=== PATIENT | female | born 1990 | race Caucasian/White ===

== ENCOUNTER 2016-10-22 20:06 | Emergency (ER) | payer BC ==
[2016-10-22 20:10] VITALS: BP 114/80
--- NOTE | 2016-10-22 21:32 | UC ---
Cardiac HPI - HPI Summary HPI Summary: The patient comes in today for: 1. Chest pain: Onset: 3 weeks--not going away before, but it is not going away now. Palliative/provocative: Nothing particularly makes it persistently better or worse. Walking does not make it worse. Quality: Pressure--"Lots and lots of pressure, like someone is pressing on my chest." Region: Left chest. Severity: 6/10 Time: Constant. Associated symptoms: Dyspnea: Present. Hemoptysls: None. Injury: None. Blood clotting problems/DVT: None Blood clotting problems in the family: None. Cocaine: None. Heart disease: None. Travel: None. * - History of Current Complaint Chief Complaint: UCRespiratory Stated Complaint: CHEST DISCOMFORT,SOB Time Seen by Provider: 10/22/16 20:12 Hx Obtained From: Patient - Allergy/Home Medications Allergies/Adverse Reactions: Allergies Allergy/AdvReac Type Severity Reaction Status Date / Time Cefaclor Allergy Severe Rash Verified 10/22/16 20:10 Cefprozil [From Cefzil] Allergy Severe Rash Verified 10/22/16 20:10 Sulfa Drugs Allergy Severe Rash Verified 10/22/16 20:10 Penicillins Allergy Unknown Rash Verified 10/22/16 20:10 Amoxicillin Allergy Rash Verified 10/22/16 20:10 Home Medications: Home Medications Eye Drop ? Name 10/22/16 [History] PMH/Surg Hx/FS Hx/Imm Hx Previously Healthy: No - Allergies/eye drops. Endocrine History Of: Denies: Diabetes, Thyroid Disease, Hyperthyroidism, Hypothyroidism, Dyslipidemia Cardiovascular History Of: Denies: Cardiac Disorders, Hypertension, Pacemaker/ICD, Myocardial Infarction , Congestive Heart Failure, Atrial Fibrillation, Deep Vein Thrombosis, Bleeding Disorders Respiratory History Of: Denies: COPD, Asthma, Bronchitis, Pneumonia, Pulmonary Embolism GI/ History Of: Denies: Gastroesophageal Reflux, Ulcer, Gastrointestinal Bleed, Gall Bladder Disease, Kidney Stones, Diverticulitis, Renal Disease, Urosepsis Neurological History Of: Denies: TIA, CVA, Dementia, Seizures, Migraine Psychological History Of: Denies: Anxiety, Depression, Bipolar Disorder, Schizophrenia, Post Traumatic Stress Disorder Cancer History Of: Denies: Lung Cancer, Colorectal Cancer, Breast Cancer, Prostate Cancer, Cervical Cancer Other History Of: Negative For: HIV, Hepatitis B, Hepatitis C, Anticoagulant Therapy - Surgical History Surgical History: Yes Surgery Procedure, Year, and Place: D&C, EAR TUBES - Family History Known Family History: Positive: Cardiac Disease Negative: Hypertension - Social History Occupation: Employed Full-time Alcohol Use: Rare Substance Use Type: Marijuana Smoking Status (MU): Never Smoked Tobacco - Immunization History Most Recent Influenza Vaccination: 05/14/15 Most Recent Tetanus Shot: 07/02/15 Most Recent Pneumonia Vaccination: never Review of Systems Constitutional: Negative Skin: Rash - Metal allergy on the left wrist. Eyes: Negative ENT: Negative Respiratory: Negative Cardiovascular: Negative Gastrointestinal: Negative Genitourinary: Negative All Other Systems Reviewed And Are Negative: Yes Physical Exam Triage Information Reviewed: Yes Appearance: Well-Appearing, No Pain Distress, Well-Nourished Vital Signs: Initial Vital Signs Temp 98.7 F 10/22/16 20:07 Pulse 82 10/22/16 20:07 Resp 12 10/22/16 20:07 BP 114/80 10/22/16 20:07 Pulse Ox 98 10/22/16 20:07 Vital Signs Reviewed: Yes Eyes: Positive: Conjunctiva Clear. Negative: Discharge ENT: Positive: Hearing grossly normal. Negative: Pharyngeal erythema, Nasal congestion, TM bulging, TM dull, TM red, Tonsillar swelling, Tonsillar exudate Dental: Negative: Gross Decay/Caries @, Dental Fracture @ Neck: Positive: Supple, Nontender, No Lymphadenopathy. Negative: Nuchal Rigidity Respiratory: Positive: Chest non-tender, Lungs clear, No respiratory distress Cardiovascular: Positive: RRR, No Murmur Abdomen Description: Positive: Nontender, No Organomegaly, Soft. Negative: Distended, Guarding Musculoskeletal: Positive: Strength Intact, ROM Intact, Other: - Pressure of the upper chest does cause discomfort similar to what she describes. Neurological: Positive: Alert, Muscle Tone Normal Psychological: Positive: Age Appropriate Behavior, Consolable Skin: Negative: rashes, breakdown - Assessment/Plan Course Of Treatment: The patient was told that I don't know for sure what is causing her chest. pain, though I suspect that it may be musculoskeletal. The patient was also told that the problem with evaluating chest pain is that there are many causes for chest pain--some which are benign and some which are life- threatening. Furthermore, it was. mentioned that the life-threatening causes of chest pain can present with. minimal, atypical, or even no symptoms. All this makes it difficult to diagnose chest pain. Becasue of these facts and the fact. that we don't have here all the testing methods commonly used to assess chest. pain, and their timely resuts, we are more limited than places such as the ER which does have these testing modalities. Ultimately, the safest action is for the patient to go to. the [facility] ([facility]) ER for evaluation. A patient can never go wrong that way. She was told that my pressing on her chest reproducing her chest pressure was consistent with chest wall causes of chest pain, but her being short of breath and the pressure sensation was not. She was told that her risk factors for blood clot was low, but not impossible. In the end, she wanted to go to the ER. - Clinical Impression Provider Diagnoses: Chest pain - Physician Notifications Discussed Patient Care With: Abigail Rodriguez Time Discussed With Above Provider: 21:53 Discharge - Discharge Plan Condition: Stable Disposition: AGAINST MEDICAL ADVICE Additional Instructions: Patient is going to the [facility] ER by private car.
== END 2016-10-22 21:59 | disposition left against medical advice (07) ==
LOC: UCEAST 20:06
DX: R07.89 Other chest pain (principal); R06.02 Shortness of breath; Z88.1 Allergy status to other antibiotic agents; Z88.0 Allergy status to penicillin; Z88.2 Allergy status to sulfonamides
CPT/HCPCS: 93005; 99212; G0463

== ENCOUNTER 2016-10-22 22:16 | Emergency (ER) | payer BC ==
[2016-10-22] MEDS ORDERED: Cyclobenzaprine TAB* 10 MG PO ONE (23:47)
[2016-10-22] MEDS ORDERED: Azithromycin TAB* 250 MG PO ONE (23:47)
--- NOTE | 2016-10-22 23:51 | ED ---
Anali Armijo Claudia, scribed for Rachana Dolan MD on 10/22/16 at 2347 . HPI Chest Pain - HPI Summary HPI Summary: 26 year old female presents to the ED with CP. Pt notes sudden onset of pain at 1830 tonight. She notes that she has had intermittent episodes like this in the past and attributed it to GERD but today the upper left sternal pain has been constant (4/10) with bursts of sharp pain which is different from GERD Sx she notes. Pt notes that she is on control but denies any calf pain. She also denies ant PMHx or FHx of PE. Pt mentions that her position and deep breaths do not aggravate or alleviate her Sx - History of Current Complaint Chief Complaint: EDChestPainROMI Time Seen by Provider: 10/22/16 23:13 Hx Obtained From: Patient Onset/Duration: Started Hours Ago - 183 today Timing: Constant - constant pressure with bursts of sharp pain Pain Intensity: 4 Pain Scale Used: 0-10 Numeric Chest Pain Location: Upper Sternal Chest Pain Radiates: No Character: Pressure/Squeezing, Sharp/Stabbing Associated Signs and Symptoms: Positive: Chest Pain. Negative: Calf Pain/ Swelling - Allergy/Home Medications Allergies/Adverse Reactions: Allergies Allergy/AdvReac Type Severity Reaction Status Date / Time Cefaclor Allergy Severe Rash Verified 10/22/16 23:30 Cefprozil [From Cefzil] Allergy Severe Rash Verified 10/22/16 23:30 Sulfa Drugs Allergy Severe Rash Verified 10/22/16 23:30 Penicillins Allergy Unknown Rash Verified 10/22/16 23:30 Amoxicillin Allergy Rash Verified 10/22/16 23:30 Lactose Intolerance (GI) Allergy Diarrhea Verified 10/22/16 23:30 PMH/Surg Hx/FS Hx/Imm Hx Previously Healthy: Yes Endocrine/Hematology History: Denies: Hx Anticoagulant Therapy, Hx Diabetes, Hx Thyroid Disease Cardiovascular History: Denies: Hx Congestive Heart Failure, Hx Deep Vein Thrombosis, Hx Hypertension , Hx Myocardial Infarction, Hx Pacemaker/ICD Respiratory History: Denies: Hx Asthma, Hx Chronic Obstructive Pulmonary Disease (COPD), Hx Lung Cancer, Hx Pneumonia, Hx Pulmonary Embolism GI History: Denies: Hx Gall Bladder Disease, Hx Gastrointestinal Bleed, Hx Ulcer, Hx Urosepsis History: Denies: Hx Kidney Stones, Hx Renal Disease Neurological History: Denies: Hx Dementia, Hx Migraine, Hx Seizures, Hx Transient Ischemic Attacks (TIA) Psychiatric History: Denies: Hx Anxiety, Hx Depression, Hx Schizophrenia, Hx Bipolar Disorder - Surgical History Surgery Procedure, Year, and Place: D&C, EAR TUBES - Immunization History Date of Tetanus Vaccine: unk Date of Influenza Vaccine: 2014 Infectious Disease History: No Infectious Disease History: Denies: Hx Clostridium Difficile, Hx Hepatitis, Hx Human Immunodeficiency Virus (HIV), Hx of Known/Suspected MRSA, Hx Shingles, Hx Tuberculosis, Hx Known/ Suspected VRE, Hx Known/Suspected VRSA, History Other Infectious Disease, Traveled Outside the [place] in Last 30 Days - Family History Known Family History: Positive: Cardiac Disease Negative: Hypertension - Social History Occupation: Employed Full-time Lives: With Family Alcohol Use: Occasionally Substance Use Type: Reports: Marijuana Substance Use Comment - Amount & Last Used: not recently Smoking Status (MU): Never Smoked Tobacco Review of Systems Constitutional: Negative Eyes: Negative ENT: Negative Positive: Chest Pain Respiratory: Negative Gastrointestinal: Negative Genitourinary: Negative Positive: Other - no calf pain Skin: Negative Neurological: Negative Psychological: Normal All Other Systems Reviewed And Are Negative: Yes Physical Exam Triage Information Reviewed: Yes Vital Signs On Initial Exam: Initial Vitals Temp Pulse Resp BP Pulse Ox 97.9 F 72 18 123/72 99 10/22/16 22:20 10/22/16 22:20 10/22/16 22:20 10/22/16 22:20 10/22/16 22:20 Vital Signs Reviewed: Yes Appearance: Positive: Well-Appearing, No Pain Distress Skin: Positive: Warm, Skin Color Reflects Adequate Perfusion, Dry Eyes: Positive: EOMI, GRACIELA Neck: Positive: Supple, Nontender Cardiovascular: Positive: RRR. Negative: Murmur, Leg Edema Left, Leg Edema Right Abdomen Description: Positive: Nontender, Soft. Negative: Distended, Guarding Musculoskeletal: Positive: Strength/ROM Intact, Other - pain at the left sternocostal Neurological: Positive: Sensory/Motor Intact, Alert, Oriented to Person Place, Time, CN Intact II-III Psychiatric: Positive: Affect/Mood Appropriate - [place] Coma Scale Coma Scale Total: 15 Diagnostics - Vital Signs Vital Signs Temp Pulse Resp BP Pulse Ox 10/22/16 23:29 97.9 F 60 16 98/65 98 03/30/17 22:20 97.9 F 72 18 123/72 99 - Laboratory Lab Statement: Any lab studies that have been ordered have been reviewed, and results considered in the medical decision making process. - EKG No standard instances Cardiac Rate: NL EKG Rhythm: Sinus Rhythm Ectopy: None Chest Pain Course/Dx - Course Course Of Treatment: pt with normal vital signs very much doubt PE normal hr, rr and o2 sat. cp is clearly related to uri that started 8 days ago, starting pt on azithro and giving flexeril for muscle spasm - Diagnoses Provider Diagnoses: Bronchitis, Strain of abdominal muscle Discharge - Discharge Plan Condition: Stable Disposition: HOME Prescriptions: Azithromycin TAB* [Zithromax TAB (Z-MERLENE) 250 mg #6 tabs] 250 mg PO DAILY #4 tab Cyclobenzaprine TAB* [Flexeril 10 MG TAB*] 10 mg PO TID PRN #14 tab PRN Reason: Spasms The documentation as recorded by the Anali stevenson Claudia accurately reflects the service I personally performed and the decisions made by me, Rachana Dolan MD.
[2016-10-22] MEDS ORDERED: Aspirin Low Dose CHEW TAB* 81 MG PO ONE (23:55)
[2016-10-23 00:21] LABS: Albumin 4.4 g/dL (3.2-5.2); BUN/Creatinine Ratio 14.4 (8-20); Calcium 9.4 mg/dL (8.6-10.3); EGFR African American 90.7 (>60); EGFR Non-African American 70.6 (>60); Globulin 2.7 g/dL (2-4); Potassium 3.9 mmol/L (3.5-5.0); Total Bilirubin 0.3 mg/dL (0.2-1.0); Total Protein 7.1 g/dL (6.4-8.9)
[2016-10-23 01:06] LABS: Hematocrit 40 % (35-47); Hemoglobin 13.1 g/dl (12.0-16.0); Mean Corpuscular HGB Conc 33 g/dl (31-36); Mean Corpuscular Hemoglobin 29 pg (27-31); Mean Corpuscular Volume 88 fL (80-97); Mean Platelet Volume 9 um3 (7.4-10.4); Red Blood Count 4.51 10^6/ul (4.0-5.4); Red Cell Distribution Width 14 % (10.5-15); White Blood Count 8.5 10^3/ul (3.5-10.8)
--- NOTE | 2016-10-23 01:43 | ED ---
Anali Armijo Claudia, scribed for Rachana Dolan MD on 10/23/16 at 0106 . Progress - Progress Note Progress Note: CXR: ED PHYSICIAN IMPRESSION: NO ACUTE CARDIOPULMONARY DISEASE Course/Dx - Course Course Of Treatment: pt with normal vital signs (please note documentation on azithro and muscle strain were not part of this pts care). pt with tenderness to palpation over ribs 3-6 mid clavicular line- likely costochondritis. troponin and ddimer negative. - Diagnoses Provider Diagnoses: Costochondritis, acute The documentation as recorded by the Anali stevenson Claudia accurately reflects the service I personally performed and the decisions made by Kelsi echols Justine, MD.
[2016-10-23 01:51] VITALS: BP 117/60
--- NOTE | 2016-10-23 07:55 | RAD ---
INDICATION: Chest pain and pressure x3 weeks COMPARISON: None. TECHNIQUE: Single AP portable view of the chest was obtained. FINDINGS: Image quality is compromised due to the relative inferiority of a portable chest x-ray. The heart and mediastinum exhibit normal size and contour. The lungs are grossly clear. There is no evidence of a large pleural effusion. Visualized bones are normal for the patient's age. IMPRESSION: No radiographic evidence for acute cardiopulmonary abnormality on this portable chest x-ray.
== END 2016-10-23 02:01 | disposition home or self-care (01) ==
LOC: ED 22:16
DX: M94.0 Chondrocostal junction syndrome [Tietze] (principal); S39.011A Strain of muscle, fascia and tendon of abdomen, initial encounter; R07.9 Chest pain, unspecified; J40 Bronchitis, not specified as acute or chronic; X58.XXXA Exposure to other specified factors, initial encounter; Y93.89 Activity, other specified; Y92.9 Unspecified place or not applicable; K21.9 Gastro-esophageal reflux disease without esophagitis
CPT/HCPCS: 36415; 71010; 80053; 84484; 85025; 85379; 93005; 99283; A9270-GY

== ENCOUNTER 2016-12-24 10:33 | Emergency (ER) | payer BC ==
[2016-12-24] MEDS ORDERED: Meclizine TAB* 12.5 MG PO ONE (11:31)
[2016-12-24 14:19] VITALS: BP 117/61
--- NOTE | 2016-12-24 18:24 | ED ---
Everardo Armijo Benjamin, scribed for Logan Randolph MD on 12/24/16 at 1154 . Dizziness - HPI Summary HPI Summary: 26yo female c/o dizziness since yesterday night. Pt also reports a temporal and ear pressure as well as nausea. Her symptoms are worse with closing her eyes, supine to upright, and upright to supine position changes. Denies ringing or tingling in the ears. - History Of Current Complaint Chief Complaint: EDDizziness Stated Complaint: DIZZY,LIGHTHEAD Time Seen by Provider: 12/24/16 10:45 Hx Obtained From: Patient Onset/Duration: Still Present Timing: Constant Severity Initially: Mild Severity Currently: Mild Character: Dizzy Aggravating Factor(s): Position Change, Supine To Erect, Change In Head Position Alleviating Factor(s): Nothing Associated Signs And Symptoms: Positive: Negative - Allergies/Home Medications Allergies/Adverse Reactions: Allergies Allergy/AdvReac Type Severity Reaction Status Date / Time Cefaclor Allergy Severe Rash Verified 10/22/16 23:30 Cefprozil [From Cefzil] Allergy Severe Rash Verified 10/22/16 23:30 Sulfa Drugs Allergy Severe Rash Verified 10/22/16 23:30 Penicillins Allergy Unknown Rash Verified 10/22/16 23:30 Amoxicillin Allergy Rash Verified 10/22/16 23:30 Lactose Intolerance (GI) Allergy Diarrhea Verified 10/22/16 23:30 PMH/Surg Hx/FS Hx/Imm Hx Endocrine/Hematology History: Denies: Hx Anticoagulant Therapy, Hx Diabetes, Hx Thyroid Disease Cardiovascular History: Denies: Hx Congestive Heart Failure, Hx Deep Vein Thrombosis, Hx Hypertension , Hx Myocardial Infarction, Hx Pacemaker/ICD Respiratory History: Denies: Hx Asthma, Hx Chronic Obstructive Pulmonary Disease (COPD), Hx Lung Cancer, Hx Pneumonia, Hx Pulmonary Embolism GI History: Denies: Hx Gall Bladder Disease, Hx Gastrointestinal Bleed, Hx Ulcer, Hx Urosepsis History: Denies: Hx Kidney Stones, Hx Renal Disease Neurological History: Denies: Hx Dementia, Hx Migraine, Hx Seizures, Hx Transient Ischemic Attacks (TIA) Psychiatric History: Denies: Hx Anxiety, Hx Depression, Hx Schizophrenia, Hx Bipolar Disorder - Surgical History Surgery Procedure, Year, and Place: D&C, EAR TUBES - Immunization History Date of Tetanus Vaccine: unk Date of Influenza Vaccine: 2014 Infectious Disease History: No Infectious Disease History: Denies: Hx Clostridium Difficile, Hx Hepatitis, Hx Human Immunodeficiency Virus (HIV), Hx of Known/Suspected MRSA, Hx Shingles, Hx Tuberculosis, Hx Known/ Suspected VRE, Hx Known/Suspected VRSA, History Other Infectious Disease, Traveled Outside the [place] in Last 30 Days - Family History Known Family History: Positive: Cardiac Disease Negative: Hypertension - Social History Occupation: Employed Full-time Lives: With Family Alcohol Use: Occasionally Substance Use Type: Reports: Marijuana Substance Use Comment - Amount & Last Used: not recently Hx Tobacco Use: No Smoking Status (MU): Never Smoked Tobacco Review of Systems Constitutional: Negative Eyes: Negative Positive: Other - ear pressure Cardiovascular: Negative Respiratory: Negative Gastrointestinal: Negative Genitourinary: Negative Musculoskeletal: Negative Skin: Negative Neurological: Other - dizziness, head pressure Psychological: Normal All Other Systems Reviewed And Are Negative: Yes Physical Exam Triage Information Reviewed: Yes Vital Signs On Initial Exam: Initial Vitals Temp Pulse Resp BP Pulse Ox 98.2 F 61 20 122/84 99 12/24/16 10:38 12/24/16 10:38 12/24/16 10:38 12/24/16 10:38 12/24/16 10:38 Vital Signs Reviewed: Yes Appearance: Positive: Well-Appearing, No Pain Distress, Well-Nourished Skin: Positive: Warm, Skin Color Reflects Adequate Perfusion, Dry Head/Face: Positive: Normal Head/Face Inspection Eyes: Positive: Other: - nystagmus fatigued to th left ENT: Positive: Normal ENT inspection Neck: Positive: Supple, Nontender Respiratory/Lung Sounds: Positive: Clear to Auscultation, Breath Sounds Present Cardiovascular: Positive: RRR Abdomen Description: Positive: Nontender, Soft Bowel Sounds: Positive: Present Musculoskeletal: Positive: Normal Neurological: Positive: Sensory/Motor Intact, Alert, Oriented to Person Place, Time, CN Intact II-III, Dahlia-Scott Hardin Test - positive to the left Psychiatric: Positive: Affect/Mood Appropriate - Trail Coma Scale Coma Scale Total: 15 Diagnostics - Vital Signs Vital Signs Temp Pulse Resp BP Pulse Ox 12/24/16 10:41 98.2 F 65 20 122/84 100 12/24/16 10:38 98.2 F 61 20 122/84 99 - Laboratory Lab Statement: Any lab studies that have been ordered have been reviewed, and results considered in the medical decision making process. Dizzy Course/Dx - Course Course Of Treatment: Ms. Velázquez presented with a C/O vertigo which I felt was peripheral. She had a positive [place] to the left and improved nicely with meclizine. I will treat her accordingly and recommended that she F/U if not improved in a couple days. - Diagnoses Provider Diagnoses: Peripheral vertigo Discharge - Discharge Plan Condition: Stable Disposition: HOME Prescriptions: Meclizine TAB* [Antivert 12.5 TAB*] 25 mg PO TID PRN #20 tab PRN Reason: Dizziness Patient Education Materials: Vertigo (ED) Referrals: Monty Bonner MD [Primary Care Provider] - The documentation as recorded by the Everardo stevenson Benjamin accurately reflects the service I personally performed and the decisions made by me, Logan Randolph MD.
== END 2016-12-24 13:55 | disposition home or self-care (01) ==
LOC: ED 10:33
DX: H81.399 Other peripheral vertigo, unspecified ear (principal); Z88.1 Allergy status to other antibiotic agents; Z88.0 Allergy status to penicillin; Z88.2 Allergy status to sulfonamides
CPT/HCPCS: 99282; A9270-GY